=== PATIENT | female | born 1945 | race Caucasian/White ===

== ENCOUNTER 2016-12-23 06:50 | Day surgery (SDC) | payer OTHER ==
[~2016-12-23] VITALS: Ht 157.5 cm; Wt 86.2 kg
--- NOTE | ~2016-12-23 | O ---
[facility] [place] [address] OPERATIVE REPORT Name: CHRISTIANO THOMPSON Room #: 150-14 [facility]#: [id number] Admission: 12/23/16 Attend Phys: Nicko Pacheco MD Discharge: Date of : 49 Report #: [id number] THIS REPORT FOR: //name// CC: Calin Pacheco DATE OF SERVICE: 12/23/2016 PREOPERATIVE DIAGNOSIS: Left foot great toe fracture nonunion. POSTOPERATIVE DIAGNOSIS: Left foot great toe fracture nonunion. PROCEDURE: Left foot great toe interphalangeal joint arthrodesis. SURGEON: Nicko Pacheco M.D. COTTON DISPATCHER: SE Dias. ANESTHESIA: General. ESTIMATED BLOOD LOSS: Minimal. DRAINS: No drains. TOURNIQUET TIME: 30 minutes. DESCRIPTION OF PROCEDURE: The patient brought to the operating room, where she was placed under general anesthesia. Once under adequate general anesthesia, her left lower extremity was prepped and draped in a sterile manner. The extremity was elevated, exsanguinated and tourniquet placed to 300 mmHg. A dorsal incision was made over the interphalangeal joint of the left great toe. Dissection was carried down to the joint, which was then exposed and once exposed, a rongeur was utilized to prepare the cartilage in the joint for fusion. The cartilage was removed completely and fenestrated with a guidewire for the 4.0 cannulated screw. Subsequent fixation across the joint was then achieved with a single 4.0 cannulated screw placed under fluoroscopic guidance. Excellent fixation and alignment was achieved in this manner. Once complete, the wound was irrigated copiously and closed with 3-0 nylon for the skin. The wounds were dressed with Xeroform, 4 x 4s and a sterile soft compressive dressing was placed. Tourniquet was let down approximately 30 minutes. Toes were pink and warm with good capillary refill. There were no complications from [facility] [address] [place] [address] OPERATIVE REPORT Name: CHRISTIANO THOMPSON Room #: 150-14 [facility]#: [id number] Admission: 12/23/16 Attend Phys: Nicko Pacheco MD Discharge: Date of : 49 Report #: [id number] the procedure. The patient tolerated the procedure well and went to the recovery room without incident. By: 1403 [id number] Nicko Pacheco MD /nt
[~2016-12-23 06:50] MED LIST: CENTRUM SILVER1 EAC4 PO; DICLOFENAC SODI75 MG PO; LEVOTHYROXIN0.075 MG PO; PROZAC20 MG PO; ZOCOR40 MG PO
[2016-12-23 12:02] VITALS: BP 126/77
[2016-12-23] MEDS ORDERED: PERCOCET PO (13:57)
[2016-12-23 14:07] VITALS: BP 126/77
== END 2016-12-23 16:00 | disposition home or self-care (01) ==
LOC: OR 06:50 → TBA 06:50 → OR 11:23
DX: S92.49 Other fracture of great toe (principal); M19.072 Primary osteoarthritis, left ankle and foot; E78.00 Pure hypercholesterolemia, unspecified; E03.9 Hypothyroidism, unspecified; F32.89 Other specified depressive episodes; F41.8 Other specified anxiety disorders; Z98.41 Cataract extraction status, right eye; Z96.1 Presence of intraocular lens; Z98.890 Other specified postprocedural states; X58.XXXD Exposure to other specified factors, subsequent encounter
CPT/HCPCS: 50010; 50101; 50386; 51122; 57091; 62110; 62900; 70005